=== PATIENT | female | born 1955 | race Caucasian/White ===

== ENCOUNTER 2020-04-21 23:30 | Inpatient (IN) | payer BC, MEDICARE ==
[~2020-04-21] VITALS: Ht 152.4 cm; Wt 55.7 kg
[2020-04-22 01:24] LABS: BILIRUBIN,URINE NEGATIVE (NEG); CLARITY,URINE CLEAR; COLOR,URINE YELLOW; NITRITE,URINE NEGATIVE (NEG); PH,URINE 7.5 (<5.0-8.0); PROTEIN,URINE NEGATIVE (NEG-TRACE); UROBILINOGEN,URINE 0.2 mg/dL (0.2 mg/dL)
[2020-04-22 01:29] LABS: SQUAMOUS EPITHELIAL CELL,UR FEW /LPF
[2020-04-22 01:30] LABS: BACTERIA,URINE FEW /HPF (0-FEW)
[2020-04-22] MEDS ORDERED: IV NORMAL SALINE 1000ML BAG 1,000 ML IV ONE (01:30)
[2020-04-22] MEDS ORDERED: ONDANSETRON PF 4 MG/2 ML VIAL. IVP ONE (01:30)
[2020-04-22] MEDS ORDERED: FAMOTIDINE 20 MG/2 ML VIAL IVP ONE (01:30)
[2020-04-22] MEDS ORDERED: KETOROLAC 15 MG/ML VIAL. IVP ONE (01:30)
[2020-04-22 01:39] LABS: BASO % 0 % (0-3); EOS % 0 % (0-3); HEMOGLOBIN 13.6 g/dL (12.0-15.5); LYMPH # 1.1 x10^3/uL (1.0-4.8); LYMPH % 8 % (24-48); MEAN CORPUSCULAR HEMOGLOBIN 29 pg (25-35); MEAN CORPUSCULAR HGB CONC 34 g/dL (31-37); MEAN CORPUSCULAR VOLUME 86 fL (79-100); MONO # 0.4 x10^3/uL (0.0-1.1); MONO % 3 % (0-9); NEUT # 12.1 x10^3/uL (1.8-7.7); NEUT % 89 % (31-73); PLATELET COUNT 234 x10^3/uL (140-400); RED BLOOD COUNT 4.65 x10^6/uL (3.50-5.40); WHITE BLOOD COUNT 13.6 x10^3/uL (4.0-11.0)
--- NOTE | 2020-04-22 01:44 | PHYS DOC ---
Past Medical History Past Medical History: Diabetes-Type II, High Cholesterol, Hypertension Past Surgical History: No Surgical History Smoking Status: Never Smoker Alcohol Use: None Drug Use: None General Adult EDM: Chief Complaint: ABDOMINAL PAIN HPI: HPI: 65-year-old female presents to the emergency department for nausea, vomiting, and abdominal pain that started at 1700 this evening. She states that it was not associated with any food she is aware of. The nausea and abdominal pain was sudden in onset and caused her to have to pullman clerk her car to vomit on the side of the road. Since the onset of the abdominal pain and nausea she has vomited 5 times. She has attempted drinking and eating, but has vomited after all these events. She has no associated diarrhea. She denies any changes in urination or bowel movements over the past few days. She attempted to take hydrocodone and a gas relief pill for her abdominal pain and abdominal distention, but she vomited immediately after taking these medications. She feels very distended in her abdomen. She currently still feels nauseous, but has not vomited for over 2 hours. Review of Systems: Review of Systems: Constitutional: Denies fever or chills Eyes: Denies redness or eye pain HENT: Denies nasal congestion or sore throat Respiratory: Denies cough or shortness of breath Cardiovascular: Denies chest pain or palpitations GI: Reports abdominal pain, nausea, and vomiting : Denies dysuria or hematuria Musculoskeletal: Denies back pain or joint pain Integument: Denies rash or skin lesions Neurologic: Denies headache, focal weakness or sensory changes Complete systems were reviewed and found to be within normal limits, except as documented in this note. Current Medications: Current Medications Medications (Trade) Dose Ordered Sig/Hernando Start Time Stop Time Status Last Admin Dose Admin Famotidine (Pepcid Vial) 20 mg 1X ONCE 04/22/20 01:30 04/22/20 01:31 DC Ketorolac Tromethamine (Toradol 15mg Vial) 10 mg 1X ONCE 04/22/20 01:30 04/22/20 01:31 DC Ondansetron HCl (Zofran) 4 mg 1X ONCE 04/22/20 01:30 04/22/20 01:31 DC Sodium Chloride 1,000 ml @ 1,000 mls/hr 1X ONCE 04/22/20 01:30 04/22/20 02:29 Allergies: Allergies: Allergies Coded Allergies Type Severity Reaction Last Updated Verified No Known Drug Allergies 04/22/20 No Physical Exam: PE: Constitutional: Well developed, well nourished, no acute distress, non-toxic appearance HENT: Normocephalic, atraumatic Eyes: Conjunctiva normal, no discharge Neck: Normal range of motion, supple Lungs & Thorax: No respiratory distress, bilateral equal rise and fall of chest Abdomen: Soft, slightly distended, tenderness noted in all 4 quadrants, no guarding Skin: Warm, dry, no erythema, no rash Back: No tenderness, no CVA tenderness Extremities: No tenderness, ROM intact, no edema Neurologic: Alert and oriented X 3, normal motor function, normal sensory function, no focal deficits noted Psychologic: Affect normal, judgment normal Current Patient Data: Labs: Laboratory Tests Test 04/22/20 00:16 Urine Collection Type Unknown Urine Color Yellow Urine Clarity Clear Urine pH 7.5 (<5.0-8.0) Urine Specific [place] 1.020 (1.000-1.030) Urine Protein Negative mg/dL (NEG-TRACE) Urine Glucose (UA) Negative mg/dL (NEG) Urine Ketones (Stick) 40 mg/dL (NEG) Urine Blood Negative (NEG) Urine Nitrite Negative (NEG) Urine Bilirubin Negative (NEG) Urine Urobilinogen Dipstick 0.2 mg/dL (0.2 mg/dL) Urine Leukocyte Esterase Moderate (NEG) Urine RBC 1-2 /HPF (0-2) Urine WBC 11-20 /HPF (0-4) Urine Squamous Epithelial Cells Few /LPF Urine Bacteria Few /HPF (0-FEW) Urine Mucus Marked /LPF EKG: EKG: [] Radiology/Procedures: Radiology/Procedures: PROCEDURE: CT ABD PELV W/ IV CONTRST ONLY CT abdomen and pelvis with contrast PQRS statement: CT scans at this facility use dose reduction including either automated exposure control, iterative reconstructions, and /or weight based radiation dosing via mA and kV modification when appropriate to reduce radiation dose to as low as reasonably achievable. Contrast: 75 mL Omnipaque 300 intravenous contrast. HISTORY: Abdominal pain and distention. Abdomen findings: Lung bases unremarkable. Lumbar disc disease. Gallbladder phrygian cap containing a gallstone there may be a narrow neck of this. Liver, pancreas, spleen, adrenal glands and kidneys are unremarkable. Small bowel obstruction transition point at the terminal ileum where it is collapsed for length of 10 cm and demonstrates wall thickening leading up to the ileocecal junction likely related to ileitis. The appendix is negative. No abdominal fluid or adenopathy. 2 cm fatty periumbilical abdominal wall hernia. Pelvis findings: Retroverted uterus. Rectum collapse. Ovaries, bladder and bones are unremarkable. No fluid or adenopathy. IMPRESSION: 1. Small bowel obstruction transition point at the terminal ileum which demonstrates wall thickening and a stricture may indicate terminal ileitis from Crohn's disease. 2. Appendix is negative. 3. Gallstone. FOR INTERNAL CODING PURPOSES Critical result: Findings discussed with LIAN ZAMARRIPA at 04/22/2020 4:19 AM. There was a delay in report of the study due to delay in receiving all of the images of the study. RESULT CODE: (C) Electronically signed by: Sha Ventura MD (04/22/2020 4:20 AM) [facility] [place] & Med Decision Making: Course & Med Decision Making Patient presents with abdominal pain, nausea, and vomiting. The vomiting started at 1700 today and was associated with severe abdominal pain. Upon her examination the emergency department she appeared to be in acute pain and to be very uncomfortable. She stated that she had not been able to eat food or drink water without vomiting. IVF hydration and symptomatic treatment provided. CT of the abdomen came back as positive for small bowel obstruction. Patient requiring admission for further evaluation and treatment. Discussed with Dr. Chan (hospitalist) who is in agreement with admission. Consult placed for general surgery. Discussed findings and plan with patient and family, who acknowledge understanding and agreement. Dragon Disclaimer: Dragon Disclaimer: This electronic medical record was generated, in whole or in part, using a voice recognition dictation system. Departure Departure Impression: Primary Impression: Small bowel obstruction Disposition: ADMITTED INPATIENT Admitting Physician: AGUSTO (Dustin) Condition: STABLE Referrals: TRUDI AVILES APRN (PCP) Justicifation of Admission Dx: Justifications for Admission: Justification of Admission Dx: Yes Comments: LIAN CROCKETT DO Apr 22, 2020 01:44
[2020-04-22 01:47] LABS: CALCIUM 9.3 mg/dL (8.5-10.1); CREATININE 0.8 mg/dL (0.6-1.0); POTASSIUM 4.1 mmol/L (3.5-5.1)
[2020-04-22 01:54] LABS: ALBUMIN 4.1 g/dL (3.4-5.0); ALBUMIN/GLOBULIN RATIO 1.1 (1.0-1.7); MAGNESIUM 2.2 mg/dL (1.8-2.4); TOTAL BILIRUBIN 0.4 mg/dL (0.2-1.0); TOTAL PROTEIN 7.9 g/dL (6.4-8.2)
[2020-04-22 02:06] LABS: % BANDS 2 % (0-9); % LYMPHS 12 % (24-48); % SEGS 86 % (35-66); PLT ESTIMATE ADEQUATE (ADEQUATE)
[2020-04-22] MEDS ORDERED: CONTRAST GIVEN. MC PRN (02:15)
[2020-04-22] MEDS ORDERED: cefTRIAXone IV Push 1 GM VIAL. IVP ONE (02:30)
[2020-04-22] MEDS ORDERED: IOHEXOL 300 MG/ML 100ML VIAL. IV ONE (02:30)
--- NOTE | 2020-04-22 04:22 | RAD ---
CT abdomen and pelvis with contrast PQRS statement: CT scans at this facility use dose reduction including either automated exposure control, iterative reconstructions, and /or weight based radiation dosing via mA and kV modification when appropriate to reduce radiation dose to as low as reasonably achievable. Contrast: 75 mL Omnipaque 300 intravenous contrast. HISTORY: Abdominal pain and distention. Abdomen findings: Lung bases unremarkable. Lumbar disc disease. Gallbladder phrygian cap containing a gallstone there may be a narrow neck of this. Liver, pancreas, spleen, adrenal glands and kidneys are unremarkable. Small bowel obstruction transition point at the terminal ileum where it is collapsed for length of 10 cm and demonstrates wall thickening leading up to the ileocecal junction likely related to ileitis. The appendix is negative. No abdominal fluid or adenopathy. 2 cm fatty periumbilical abdominal wall hernia. Pelvis findings: Retroverted uterus. Rectum collapse. Ovaries, bladder and bones are unremarkable. No fluid or adenopathy. IMPRESSION: 1. Small bowel obstruction transition point at the terminal ileum which demonstrates wall thickening and a stricture may indicate terminal ileitis from Crohn's disease. 2. Appendix is negative. 3. Gallstone. FOR INTERNAL CODING PURPOSES Critical result: Findings discussed with LIAN ZAMARRIPA at 04/22/2020 4:19 AM. There was a delay in report of the study due to delay in receiving all of the images of the study. RESULT CODE: (C) Electronically signed by: Sha Ventura MD (04/22/2020 4:20 AM) [facility]
[2020-04-22] MEDS ORDERED: fentaNYL PF VIAL 100 MCG/2 ML VIAL IV ONE (04:30)
[2020-04-22] MEDS ORDERED: ONDANSETRON PF 4 MG/2 ML VIAL. IV PRN ×2 (04:30→13:00)
[2020-04-22] MEDS: IV NORMAL SALINE 1000ML BAG 1,000 ML IV SCH ×2 (04:51→12:02)
[2020-04-22] MEDS: fentaNYL PF VIAL 100 MCG/2 ML VIAL IV PRN ×6 (07:15→21:29)
[2020-04-22 07:25] VITALS: BP 118/62
--- NOTE | 2020-04-22 09:37 | PDOC2 ---
MARTINA VALENCIA ACCOUNTING PROFESSIONAL 04/22/20 0937: CONSULT Date of Consult Date of Consult DATE: 04/22/20 TIME: 09:28 Reason for Consult Reason for Consult: SBO Referring Physician Referring Physician: ER Identification/Chief Complaint Chief Complaint abdominal pain Source Source: Chart review, Patient History of Present Illness Reason for Visit: Acute onset severe abdominal pain, vomiting, and chills. Started yesterday, no similar symptoms in past. She does report bloating, burping, No stool since Sunday, soft, no blood Colonoscopy 5 years ago, found some bleeding spots per patient, due to repeat this year Past Medical History Past Medical History no medical hx Past Surgical History Past Surgical History: No pertinent history Family History Family History: Other (no IBD) Social History No ALCOHOL: none Drugs: None Lives: with Family Current Problem List Problem List Problems Medical Problems: (1) Small bowel obstruction Status: Acute Current Medications Current Medications Current Medications Ondansetron HCl (Zofran) 4 mg 1X ONCE IVP Last administered on 04/22/20at 01:59; Start 04/22/20 at 01:30; Stop 04/22/20 at 01:31; Status DC Famotidine (Pepcid Vial) 20 mg 1X ONCE IVP Last administered on 04/22/20at 01:59; Start 04/22/20 at 01:30; Stop 04/22/20 at 01:31; Status DC Sodium Chloride 1,000 ml @ 1,000 mls/hr 1X ONCE IV Last administered on 04/22/20at 01:59; Start 04/22/20 at 01:30; Stop 04/22/20 at 02:29; Status DC Ketorolac Tromethamine (Toradol 15mg Vial) 10 mg 1X ONCE IVP Last administered on 04/22/20at 02:00; Start 04/22/20 at 01:30; Stop 04/22/20 at 01:31; Status DC Iohexol (Omnipaque 300 Mg/ml) 75 ml 1X ONCE IV Last administered on 04/22/20at 02:26; Start 04/22/20 at 02:30; Stop 04/22/20 at 02:31; Status DC Info (CONTRAST GIVEN -- Rx MONITORING) 1 each PRN DAILY PRN MC SEE COMMENTS; Start 04/22/20 at 02:15; Stop 04/24/20 at 02:14 Ceftriaxone Sodium (Rocephin) 1 gm 1X ONCE IVP Last administered on 04/22/20at 04:07; Start 04/22/20 at 02:30; Stop 04/22/20 at 02:31; Status DC Fentanyl Citrate (Fentanyl 2ml Vial) 25 mcg 1X ONCE IV Last administered on 04/22/20at 04:52; Start 04/22/20 at 04:30; Stop 04/22/20 at 04:31; Status DC Ondansetron HCl (Zofran) 4 mg PRN Q8HRS PRN IV NAUSEA/VOMITING 1ST CHOICE Last administered on 04/22/20at 07:15; Start 04/22/20 at 04:30; Stop 04/23/20 at 04:29 Fentanyl Citrate (Fentanyl 2ml Vial) 25 mcg PRN Q2HRS PRN IV SEVERE PAIN 7-10 Last administered on 04/22/20at 07:15; Start 04/22/20 at 04:30 Sodium Chloride 1,000 ml @ 100 mls/hr Q10H IV Last administered on 04/22/20at 04:51; Start 04/22/20 at 04:30; Stop 04/23/20 at 04:29 Ceftriaxone Sodium (Rocephin) 1 gm Q24H IVP ; Start 04/22/20 at 21:00 Allergies Allergies: Coded Allergies: Penicillins (Verified Allergy, Unknown, 04/22/20) TOLERATES CTX ROS General: YES: Chills, Fatigue PSYCHOLOGICAL ROS: No: Anxiety, Depression Eyes: No Blurry vision, No Double vision HEENT: No: Heacaches, Sore Throat Hematological and Lymphatic: No: Bleeding Problems, Blood Clots Respiratory: No: Cough, Shortness of breath Cardiovascular: No Chest Pain, No Palpitations Gastrointestinal: Yes Other (see hpi) Genitourinary: YES Dysuria; No Hematuria Neurological: No Confusion, No Impaired Coord/balance Skin: No Nail Changes, No Skin Lesion Changes Physical Exam General: Alert, Oriented X3, Cooperative HEENT: Atraumatic, PERRLA Lungs: Clear to auscultation, Normal air movement Heart: Regular rate, Normal S1, Normal S2 Abdomen: Soft, Other (TTP generalized, mild distended) Extremities: No clubbing, No cyanosis Skin: No rashes, No breakdown Neuro: Normal gait, Normal speech Psych/Mental Status: Mental status NL, Mood NL MUSCULOSKELETAL: No deformity, No swelling Vitals VITALS Vital Signs Date Time Temp Pulse Resp B/P (MAP) Pulse Ox O2 Delivery O2 Flow Rate FiO2 04/22/20 07:25 98.4 80 16 118/62 (80) 97 Room Air 98.4 Labs Labs Laboratory Tests Test 04/22/20 00:16 04/22/20 01:30 Urine Collection Type Unknown Urine Color Yellow Urine Clarity Clear Urine pH 7.5 (<5.0-8.0) Urine Specific [place] 1.020 (1.000-1.030) Urine Protein Negative mg/dL (NEG-TRACE) Urine Glucose (UA) Negative mg/dL (NEG) Urine Ketones (Stick) 40 mg/dL (NEG) Urine Blood Negative (NEG) Urine Nitrite Negative (NEG) Urine Bilirubin Negative (NEG) Urine Urobilinogen Dipstick 0.2 mg/dL (0.2 mg/dL) Urine Leukocyte Esterase Moderate (NEG) Urine RBC 1-2 /HPF (0-2) Urine WBC 11-20 /HPF (0-4) Urine Squamous Epithelial Cells Few /LPF Urine Bacteria Few /HPF (0-FEW) Urine Mucus Marked /LPF White Blood Count 13.6 x10^3/uL (4.0-11.0) Red Blood Count 4.65 x10^6/uL (3.50-5.40) Hemoglobin 13.6 g/dL (12.0-15.5) Hematocrit 40.0 % (36.0-47.0) Mean Corpuscular Volume 86 fL (79-100) Mean Corpuscular Hemoglobin 29 pg (25-35) Mean Corpuscular Hemoglobin Concent 34 g/dL (31-37) Red Cell Distribution Width 13.0 % (11.5-14.5) Platelet Count 234 x10^3/uL (140-400) Neutrophils (%) (Auto) 89 % (31-73) Lymphocytes (%) (Auto) 8 % (24-48) Monocytes (%) (Auto) 3 % (0-9) Eosinophils (%) (Auto) 0 % (0-3) Basophils (%) (Auto) 0 % (0-3) Neutrophils # (Auto) 12.1 x10^3/uL (1.8-7.7) Lymphocytes # (Auto) 1.1 x10^3/uL (1.0-4.8) Monocytes # (Auto) 0.4 x10^3/uL (0.0-1.1) Eosinophils # (Auto) 0.0 x10^3/uL (0.0-0.7) Basophils # (Auto) 0.0 x10^3/uL (0.0-0.2) Segmented Neutrophils % 86 % (35-66) Band Neutrophils % 2 % (0-9) Lymphocytes % 12 % (24-48) Platelet Estimate Adequate (ADEQUATE) Sodium Level 137 mmol/L (136-145) Potassium Level 4.1 mmol/L (3.5-5.1) Chloride Level 100 mmol/L (98-107) Carbon Dioxide Level 28 mmol/L (21-32) Anion Gap 9 (6-14) Blood Urea Nitrogen 15 mg/dL (7-20) Creatinine 0.8 mg/dL (0.6-1.0) Estimated GFR (Cockcroft-Gault) 72.0 BUN/Creatinine Ratio 19 (6-20) Glucose Level 130 mg/dL (70-99) Calcium Level 9.3 mg/dL (8.5-10.1) Magnesium Level 2.2 mg/dL (1.8-2.4) Total Bilirubin 0.4 mg/dL (0.2-1.0) Aspartate Amino Transf (AST/SGOT) 23 U/L (15-37) Alanine Aminotransferase (ALT/SGPT) 35 U/L (14-59) Alkaline Phosphatase 62 U/L (46-116) Total Protein 7.9 g/dL (6.4-8.2) Albumin 4.1 g/dL (3.4-5.0) Albumin/Globulin Ratio 1.1 (1.0-1.7) Lipase 69 U/L (73-393) Laboratory Tests Test 04/22/20 00:16 04/22/20 01:30 Urine Collection Type Unknown Urine Color Yellow Urine Clarity Clear Urine pH 7.5 (<5.0-8.0) Urine Specific Erick 1.020 (1.000-1.030) Urine Protein Negative mg/dL (NEG-TRACE) Urine Glucose (UA) Negative mg/dL (NEG) Urine Ketones (Stick) 40 mg/dL (NEG) Urine Blood Negative (NEG) Urine Nitrite Negative (NEG) Urine Bilirubin Negative (NEG) Urine Urobilinogen Dipstick 0.2 mg/dL (0.2 mg/dL) Urine Leukocyte Esterase Moderate (NEG) Urine RBC 1-2 /HPF (0-2) Urine WBC 11-20 /HPF (0-4) Urine Squamous Epithelial Cells Few /LPF Urine Bacteria Few /HPF (0-FEW) Urine Mucus Marked /LPF White Blood Count 13.6 x10^3/uL (4.0-11.0) Red Blood Count 4.65 x10^6/uL (3.50-5.40) Hemoglobin 13.6 g/dL (12.0-15.5) Hematocrit 40.0 % (36.0-47.0) Mean Corpuscular Volume 86 fL (79-100) Mean Corpuscular Hemoglobin 29 pg (25-35) Mean Corpuscular Hemoglobin Concent 34 g/dL (31-37) Red Cell Distribution Width 13.0 % (11.5-14.5) Platelet Count 234 x10^3/uL (140-400) Neutrophils (%) (Auto) 89 % (31-73) Lymphocytes (%) (Auto) 8 % (24-48) Monocytes (%) (Auto) 3 % (0-9) Eosinophils (%) (Auto) 0 % (0-3) Basophils (%) (Auto) 0 % (0-3) Neutrophils # (Auto) 12.1 x10^3/uL (1.8-7.7) Lymphocytes # (Auto) 1.1 x10^3/uL (1.0-4.8) Monocytes # (Auto) 0.4 x10^3/uL (0.0-1.1) Eosinophils # (Auto) 0.0 x10^3/uL (0.0-0.7) Basophils # (Auto) 0.0 x10^3/uL (0.0-0.2) Segmented Neutrophils % 86 % (35-66) Band Neutrophils % 2 % (0-9) Lymphocytes % 12 % (24-48) Platelet Estimate Adequate (ADEQUATE) Sodium Level 137 mmol/L (136-145) Potassium Level 4.1 mmol/L (3.5-5.1) Chloride Level 100 mmol/L (98-107) Carbon Dioxide Level 28 mmol/L (21-32) Anion Gap 9 (6-14) Blood Urea Nitrogen 15 mg/dL (7-20) Creatinine 0.8 mg/dL (0.6-1.0) Estimated GFR (Cockcroft-Gault) 72.0 BUN/Creatinine Ratio 19 (6-20) Glucose Level 130 mg/dL (70-99) Calcium Level 9.3 mg/dL (8.5-10.1) Magnesium Level 2.2 mg/dL (1.8-2.4) Total Bilirubin 0.4 mg/dL (0.2-1.0) Aspartate Amino Transf (AST/SGOT) 23 U/L (15-37) Alanine Aminotransferase (ALT/SGPT) 35 U/L (14-59) Alkaline Phosphatase 62 U/L (46-116) Total Protein 7.9 g/dL (6.4-8.2) Albumin 4.1 g/dL (3.4-5.0) Albumin/Globulin Ratio 1.1 (1.0-1.7) Lipase 69 U/L (73-393) Assessment/Plan Assessment/Plan SBO CT concerning for terminal ileitis ? crohns bowel rest abx will ask GI to DANIEL Boles MD 04/22/20 1142: CONSULT Assessment/Plan Assessment/Plan Agree with above MARTINA VALENCIA APRN Apr 22, 2020 09:37 DANIEL MENDOZA MD Apr 22, 2020 11:42
--- NOTE | 2020-04-22 09:49 | PDOC1 ---
History and Physical Date of Admission Date of Admission DATE: 04/22/20 TIME: 09:47 History of Present Illness History of Present Illness 65-year-old female presents to the emergency department for nausea, vomiting, and abdominal pain that started at 1700 this evening. She states that it was not associated with any food she is aware of. 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 Since the onset of the abdominal pain and nausea she has vomited 5 times. She has attempted drinking and eating, but has vomited after all these events. She has no associated diarrhea. She denies any changes in urination or bowel movements over the past few days. She attempted to take hydrocodone and a gas relief pill for her abdominal pain and abdominal distention, but she vomited immediately after taking these medications. She feels very distended in her abdomen. She currently still feels nauseous, but has not vomited for over 2 hours. Past Medical History Cardiovascular: No pertinent hx Pulmonary: No pertinent hx GI: No pertinent hx Heme/Onc: No pertinent hx Psych: No pertinent hx Past Surgical History Past Surgical History: No pertinent history Family History Family History: No Significant, Other (no IBD) Social History Smoke: No ALCOHOL: none Drugs: None Current Problem List Problem List Problems Medical Problems: (1) Small bowel obstruction Status: Acute Current Medications Current Medications Current Medications Ondansetron HCl (Zofran) 4 mg 1X ONCE IVP Last administered on 04/22/20at 01:59; Start 04/22/20 at 01:30; Stop 04/22/20 at 01:31; Status DC Famotidine (Pepcid Vial) 20 mg 1X ONCE IVP Last administered on 04/22/20at 01:59; Start 04/22/20 at 01:30; Stop 04/22/20 at 01:31; Status DC Sodium Chloride 1,000 ml @ 1,000 mls/hr 1X ONCE IV Last administered on 04/22/20at 01:59; Start 04/22/20 at 01:30; Stop 04/22/20 at 02:29; Status DC Ketorolac Tromethamine (Toradol 15mg Vial) 10 mg 1X ONCE IVP Last administered on 04/22/20at 02:00; Start 04/22/20 at 01:30; Stop 04/22/20 at 01:31; Status DC Iohexol (Omnipaque 300 Mg/ml) 75 ml 1X ONCE IV Last administered on 04/22/20at 02:26; Start 04/22/20 at 02:30; Stop 04/22/20 at 02:31; Status DC Info (CONTRAST GIVEN -- Rx MONITORING) 1 each PRN DAILY PRN MC SEE COMMENTS; Start 04/22/20 at 02:15; Stop 04/24/20 at 02:14 Ceftriaxone Sodium (Rocephin) 1 gm 1X ONCE IVP Last administered on 04/22/20at 04:07; Start 04/22/20 at 02:30; Stop 04/22/20 at 02:31; Status DC Fentanyl Citrate (Fentanyl 2ml Vial) 25 mcg 1X ONCE IV Last administered on 04/22/20at 04:52; Start 04/22/20 at 04:30; Stop 04/22/20 at 04:31; Status DC Ondansetron HCl (Zofran) 4 mg PRN Q8HRS PRN IV NAUSEA/VOMITING 1ST CHOICE Last administered on 04/22/20at 07:15; Start 04/22/20 at 04:30; Stop 04/23/20 at 04:29 Fentanyl Citrate (Fentanyl 2ml Vial) 25 mcg PRN Q2HRS PRN IV SEVERE PAIN 7-10 Last administered on 04/22/20at 07:15; Start 04/22/20 at 04:30 Sodium Chloride 1,000 ml @ 100 mls/hr Q10H IV Last administered on 04/22/20at 04:51; Start 04/22/20 at 04:30; Stop 04/23/20 at 04:29 Ceftriaxone Sodium (Rocephin) 1 gm Q24H IVP ; Start 04/22/20 at 21:00 Allergies Allergies: Coded Allergies: Penicillins (Verified Allergy, Unknown, 04/22/20) TOLERATES CTX ROS General: No: Chills, Night Sweats, Fatigue, Malaise, Appetite, Other PSYCHOLOGICAL ROS: No: Anxiety, Behavioral Disorder, Concentration difficultie, Decreased libido, Depression, Disorientation, Hallucinations, Hostility, Irritablity, Memory difficulties, Mood Swings, Obsessive thoughts, Physical abuse, Sexual abuse, Sleep disturbances, Suicidal ideation, Other Eyes: No Blurry vision, No Decreased vision, No Double vision, No Dry eyes, No Excessive tearing, No Eye Pain, No Itchy Eyes, No Loss of vision, No Photophobia, No Scotomata, No Uses contacts, No Uses glasses, No Other HEENT: No: Heacaches, Visual Changes, Hearing change, Nasal congestion, Nasal discharge, Oral lesions, Sinus pain, Sore Throat, Epistaxis, Sneezing, Snoring, Tinnitus, Vertigo, Vocal changes, Other Cardiovascular: No Chest Pain, No Palpitations, No Orthopnea, No Paroxysmal Noc. Dyspnea, No Edema, No Lt Headedness, No Other Gastrointestinal: Yes Nausea, Yes Vomiting, Yes Abdominal Pain, Yes Other (belching) Genitourinary: No Dysuria, No Frequency, No Incontinence, No Hematuria, No Retention, No Discharge, No Urgency, No Pain, No Flank Pain, No Other, No , No , No , No , No , No , No Musculoskeletal: No Gait Disturbance, No Joint Pain, No Joint Stiffness, No Joint Swelling, No Muscle Pain, No Muscular Weakness, No Pain In:, No Swelling In:, No Other Neurological: No Behavorial Changes, No Bowel/Bladder ControlChng, No Confusion, No Dizziness, No Gait Disturbance, No Headaches, No Impaired Coord/b alance, No Memory Loss, No Numbness/Tingling, No Seizures, No Speech Problems, No Tremors, No Visual Changes, No Weakness, No Other Skin: No Dry Skin, No Eczema, No Hair Changes, No Lumps, No Mole Changes, No Mottling, No Nail Changes, No Pruritus, No Rash, No Skin Lesion Changes, No Other, No Acne Physical Exam General: Alert, Oriented X3, Cooperative, mild distress HEENT: Atraumatic, PERRLA Lungs: Clear to auscultation Heart: S1S2, RRR Abdomen: Soft (tender, hypoactive sounds) Extremities: No edema, Normal pulses Skin: No significant lesion Neuro: Normal speech, Sensation intact Psych/Mental Status: Mental status NL, Mood NL Vitals Vitals Vital Signs Date Time Temp Pulse Resp B/P (MAP) Pulse Ox O2 Delivery O2 Flow Rate FiO2 04/22/20 07:25 98.4 80 16 118/62 (80) 97 Room Air 98.4 Labs Labs Laboratory Tests Test 04/22/20 00:16 04/22/20 01:30 Urine Collection Type Unknown Urine Color Yellow Urine Clarity Clear Urine pH 7.5 (<5.0-8.0) Urine Specific [place] 1.020 (1.000-1.030) Urine Protein Negative mg/dL (NEG-TRACE) Urine Glucose (UA) Negative mg/dL (NEG) Urine Ketones (Stick) 40 mg/dL (NEG) Urine Blood Negative (NEG) Urine Nitrite Negative (NEG) Urine Bilirubin Negative (NEG) Urine Urobilinogen Dipstick 0.2 mg/dL (0.2 mg/dL) Urine Leukocyte Esterase Moderate (NEG) Urine RBC 1-2 /HPF (0-2) Urine WBC 11-20 /HPF (0-4) Urine Squamous Epithelial Cells Few /LPF Urine Bacteria Few /HPF (0-FEW) Urine Mucus Marked /LPF White Blood Count 13.6 x10^3/uL (4.0-11.0) Red Blood Count 4.65 x10^6/uL (3.50-5.40) Hemoglobin 13.6 g/dL (12.0-15.5) Hematocrit 40.0 % (36.0-47.0) Mean Corpuscular Volume 86 fL (79-100) Mean Corpuscular Hemoglobin 29 pg (25-35) Mean Corpuscular Hemoglobin Concent 34 g/dL (31-37) Red Cell Distribution Width 13.0 % (11.5-14.5) Platelet Count 234 x10^3/uL (140-400) Neutrophils (%) (Auto) 89 % (31-73) Lymphocytes (%) (Auto) 8 % (24-48) Monocytes (%) (Auto) 3 % (0-9) Eosinophils (%) (Auto) 0 % (0-3) Basophils (%) (Auto) 0 % (0-3) Neutrophils # (Auto) 12.1 x10^3/uL (1.8-7.7) Lymphocytes # (Auto) 1.1 x10^3/uL (1.0-4.8) Monocytes # (Auto) 0.4 x10^3/uL (0.0-1.1) Eosinophils # (Auto) 0.0 x10^3/uL (0.0-0.7) Basophils # (Auto) 0.0 x10^3/uL (0.0-0.2) Segmented Neutrophils % 86 % (35-66) Band Neutrophils % 2 % (0-9) Lymphocytes % 12 % (24-48) Platelet Estimate Adequate (ADEQUATE) Sodium Level 137 mmol/L (136-145) Potassium Level 4.1 mmol/L (3.5-5.1) Chloride Level 100 mmol/L (98-107) Carbon Dioxide Level 28 mmol/L (21-32) Anion Gap 9 (6-14) Blood Urea Nitrogen 15 mg/dL (7-20) Creatinine 0.8 mg/dL (0.6-1.0) Estimated GFR (Cockcroft-Gault) 72.0 BUN/Creatinine Ratio 19 (6-20) Glucose Level 130 mg/dL (70-99) Calcium Level 9.3 mg/dL (8.5-10.1) Magnesium Level 2.2 mg/dL (1.8-2.4) Total Bilirubin 0.4 mg/dL (0.2-1.0) Aspartate Amino Transf (AST/SGOT) 23 U/L (15-37) Alanine Aminotransferase (ALT/SGPT) 35 U/L (14-59) Alkaline Phosphatase 62 U/L (46-116) Total Protein 7.9 g/dL (6.4-8.2) Albumin 4.1 g/dL (3.4-5.0) Albumin/Globulin Ratio 1.1 (1.0-1.7) Lipase 69 U/L (73-393) Laboratory Tests Test 04/22/20 00:16 04/22/20 01:30 Urine Collection Type Unknown Urine Color Yellow Urine Clarity Clear Urine pH 7.5 (<5.0-8.0) Urine Specific [place] 1.020 (1.000-1.030) Urine Protein Negative mg/dL (NEG-TRACE) Urine Glucose (UA) Negative mg/dL (NEG) Urine Ketones (Stick) 40 mg/dL (NEG) Urine Blood Negative (NEG) Urine Nitrite Negative (NEG) Urine Bilirubin Negative (NEG) Urine Urobilinogen Dipstick 0.2 mg/dL (0.2 mg/dL) Urine Leukocyte Esterase Moderate (NEG) Urine RBC 1-2 /HPF (0-2) Urine WBC 11-20 /HPF (0-4) Urine Squamous Epithelial Cells Few /LPF Urine Bacteria Few /HPF (0-FEW) Urine Mucus Marked /LPF White Blood Count 13.6 x10^3/uL (4.0-11.0) Red Blood Count 4.65 x10^6/uL (3.50-5.40) Hemoglobin 13.6 g/dL (12.0-15.5) Hematocrit 40.0 % (36.0-47.0) Mean Corpuscular Volume 86 fL (79-100) Mean Corpuscular Hemoglobin 29 pg (25-35) Mean Corpuscular Hemoglobin Concent 34 g/dL (31-37) Red Cell Distribution Width 13.0 % (11.5-14.5) Platelet Count 234 x10^3/uL (140-400) Neutrophils (%) (Auto) 89 % (31-73) Lymphocytes (%) (Auto) 8 % (24-48) Monocytes (%) (Auto) 3 % (0-9) Eosinophils (%) (Auto) 0 % (0-3) Basophils (%) (Auto) 0 % (0-3) Neutrophils # (Auto) 12.1 x10^3/uL (1.8-7.7) Lymphocytes # (Auto) 1.1 x10^3/uL (1.0-4.8) Monocytes # (Auto) 0.4 x10^3/uL (0.0-1.1) Eosinophils # (Auto) 0.0 x10^3/uL (0.0-0.7) Basophils # (Auto) 0.0 x10^3/uL (0.0-0.2) Segmented Neutrophils % 86 % (35-66) Band Neutrophils % 2 % (0-9) Lymphocytes % 12 % (24-48) Platelet Estimate Adequate (ADEQUATE) Sodium Level 137 mmol/L (136-145) Potassium Level 4.1 mmol/L (3.5-5.1) Chloride Level 100 mmol/L (98-107) Carbon Dioxide Level 28 mmol/L (21-32) Anion Gap 9 (6-14) Blood Urea Nitrogen 15 mg/dL (7-20) Creatinine 0.8 mg/dL (0.6-1.0) Estimated GFR (Cockcroft-Gault) 72.0 BUN/Creatinine Ratio 19 (6-20) Glucose Level 130 mg/dL (70-99) Calcium Level 9.3 mg/dL (8.5-10.1) Magnesium Level 2.2 mg/dL (1.8-2.4) Total Bilirubin 0.4 mg/dL (0.2-1.0) Aspartate Amino Transf (AST/SGOT) 23 U/L (15-37) Alanine Aminotransferase (ALT/SGPT) 35 U/L (14-59) Alkaline Phosphatase 62 U/L (46-116) Total Protein 7.9 g/dL (6.4-8.2) Albumin 4.1 g/dL (3.4-5.0) Albumin/Globulin Ratio 1.1 (1.0-1.7) Lipase 69 U/L (73-393) VTE Prophylaxis Ordered VTE Prophylaxis Devices: No VTE Pharmacological Prophylaxi: No Assessment/Plan Assessment/Plan acute abd pain small bowel obstruction admit gen surg consult follwoing UTI, rocephin Justicifation of Admission Dx: Justifications for Admission: Justification of Admission Dx: Yes SIMBA SAAVEDRA MD Apr 22, 2020 09:49
[2020-04-22] MEDS ORDERED: SALIVA STIMULANT AGENT 44ML SPRAY BOTTLE. PO PRN (10:00)
[2020-04-22] MEDS: POTASSIUM CL 20MEQ D5-0.45NACL 1,000 ML IV SCH ×2 (10:05→20:00)
--- NOTE | 2020-04-22 10:11 | NUR ---
SW following. Discussed with RN, pt from home with , room air, ad saravanan, NPO. RN advised no SW needs at this time. SW will continue to follow, should any discharge needs arise.
[2020-04-22 11:00] VITALS: BP 116/63
--- NOTE | 2020-04-22 13:05 | PDOC2 ---
GI CONSULT Date of Service: DATE: 04/22/20 TIME: 13:05 Reason For Consult: SBO, terminal ileitis, Crohn's possible on CT HPI: HPI: Very pleasant 65 y/o female who reports acute onset of mid abdominal pain w/ n/v yesterday evening. No precipitating events. In usual state of health until then. CT noted SBO w/ transition point at TI w/ wall thickening and stricture, possibility of terminal ileitis/Crohn's mentioned on report. Recurrent vomiting x 2-3 times today. Denies IBD history. Rare heartburn related to overeating, improved w/ Tums PRN. Fairly long h/o constipation - improved if she sets aside time in the morning in the restroom and drinks hot tea and coffee. Otherwise has no chronic GI symptoms except occasional bloating. Denies dysphagia, hematemesis, diarrhea, change in appetite, and weight loss. Does not recall previous EGD. Screening colonoscopy at age 50 was normal and screening colonoscopy in 03/2015 showed a few 3mm ulcers in the sigmoid colon (path w/ possible NSAID vs bowel prep vs ischemia) and internal hemorrhoids. She was taking Naproxen QD at that time for shoulder pain Denies GB, liver, pancreas, or PUD history. CT did note gallstone. No arthritis history, denies skin lesions, denies fever. PMH: PMH: per HPI FH: Family History: No pertinent hx (denies IBD), Cancer (ovarian - aunt), CVA, Hypertension, Other (father - colon polyps) Social History: Smoke: No ALCOHOL: occassional Drugs: None ROS: GEN: Denies fevers, chills, sweats HEENT: Denies blurred vision, sore throat CV: Denies chest pain RESP: Denies shortness of air, cough GI: Per HPI : Denies hematuria, dysuria ENDO: Denies weight changes NEURO: Denies confusion, dizziness MSK: Denies weakness, joint pain/swelling SKIN: Denies jaundice, pruritus Vitals: Vitals: Vital Signs Date Time Temp Pulse Resp B/P (MAP) Pulse Ox O2 Delivery O2 Flow Rate FiO2 04/22/20 12:02 98 04/22/20 11:00 97.8 78 16 116/63 (80) Room Air 97.8 Labs: Labs: Laboratory Tests Test 04/22/20 00:16 04/22/20 01:30 Urine Collection Type Unknown Urine Color Yellow Urine Clarity Clear Urine pH 7.5 (<5.0-8.0) Urine Specific [place] 1.020 (1.000-1.030) Urine Protein Negative mg/dL (NEG-TRACE) Urine Glucose (UA) Negative mg/dL (NEG) Urine Ketones (Stick) 40 mg/dL (NEG) Urine Blood Negative (NEG) Urine Nitrite Negative (NEG) Urine Bilirubin Negative (NEG) Urine Urobilinogen Dipstick 0.2 mg/dL (0.2 mg/dL) Urine Leukocyte Esterase Moderate (NEG) Urine RBC 1-2 /HPF (0-2) Urine WBC 11-20 /HPF (0-4) Urine Squamous Epithelial Cells Few /LPF Urine Bacteria Few /HPF (0-FEW) Urine Mucus Marked /LPF White Blood Count 13.6 x10^3/uL (4.0-11.0) Red Blood Count 4.65 x10^6/uL (3.50-5.40) Hemoglobin 13.6 g/dL (12.0-15.5) Hematocrit 40.0 % (36.0-47.0) Mean Corpuscular Volume 86 fL (79-100) Mean Corpuscular Hemoglobin 29 pg (25-35) Mean Corpuscular Hemoglobin Concent 34 g/dL (31-37) Red Cell Distribution Width 13.0 % (11.5-14.5) Platelet Count 234 x10^3/uL (140-400) Neutrophils (%) (Auto) 89 % (31-73) Lymphocytes (%) (Auto) 8 % (24-48) Monocytes (%) (Auto) 3 % (0-9) Eosinophils (%) (Auto) 0 % (0-3) Basophils (%) (Auto) 0 % (0-3) Neutrophils # (Auto) 12.1 x10^3/uL (1.8-7.7) Lymphocytes # (Auto) 1.1 x10^3/uL (1.0-4.8) Monocytes # (Auto) 0.4 x10^3/uL (0.0-1.1) Eosinophils # (Auto) 0.0 x10^3/uL (0.0-0.7) Basophils # (Auto) 0.0 x10^3/uL (0.0-0.2) Segmented Neutrophils % 86 % (35-66) Band Neutrophils % 2 % (0-9) Lymphocytes % 12 % (24-48) Platelet Estimate Adequate (ADEQUATE) Sodium Level 137 mmol/L (136-145) Potassium Level 4.1 mmol/L (3.5-5.1) Chloride Level 100 mmol/L (98-107) Carbon Dioxide Level 28 mmol/L (21-32) Anion Gap 9 (6-14) Blood Urea Nitrogen 15 mg/dL (7-20) Creatinine 0.8 mg/dL (0.6-1.0) Estimated GFR (Cockcroft-Gault) 72.0 BUN/Creatinine Ratio 19 (6-20) Glucose Level 130 mg/dL (70-99) Calcium Level 9.3 mg/dL (8.5-10.1) Magnesium Level 2.2 mg/dL (1.8-2.4) Total Bilirubin 0.4 mg/dL (0.2-1.0) Aspartate Amino Transf (AST/SGOT) 23 U/L (15-37) Alanine Aminotransferase (ALT/SGPT) 35 U/L (14-59) Alkaline Phosphatase 62 U/L (46-116) Total Protein 7.9 g/dL (6.4-8.2) Albumin 4.1 g/dL (3.4-5.0) Albumin/Globulin Ratio 1.1 (1.0-1.7) Lipase 69 U/L (73-393) Allergies: Coded Allergies: Penicillins (Verified Allergy, Unknown, 04/22/20) TOLERATES CTX Medications: Current Medications Medications (Trade) Dose Ordered Sig/[place] Route PRN Reason Start Time Stop Time Status Last Admin Dose Admin Ondansetron HCl (Zofran) 4 mg 1X ONCE IVP 04/22/20 01:30 04/22/20 01:31 DC 04/22/20 01:59 Famotidine (Pepcid Vial) 20 mg 1X ONCE IVP 04/22/20 01:30 04/22/20 01:31 DC 04/22/20 01:59 Sodium Chloride 1,000 ml @ 1,000 mls/hr 1X ONCE IV 04/22/20 01:30 04/22/20 02:29 DC 04/22/20 01:59 Ketorolac Tromethamine (Toradol 15mg Vial) 10 mg 1X ONCE IVP 04/22/20 01:30 04/22/20 01:31 DC 04/22/20 02:00 Iohexol (Omnipaque 300 Mg/ml) 75 ml 1X ONCE IV 04/22/20 02:30 04/22/20 02:31 DC 04/22/20 02:26 Ceftriaxone Sodium (Rocephin) 1 gm 1X ONCE IVP 04/22/20 02:30 04/22/20 02:31 DC 04/22/20 04:07 Fentanyl Citrate (Fentanyl 2ml Vial) 25 mcg 1X ONCE IV 04/22/20 04:30 04/22/20 04:31 DC 04/22/20 04:52 Ondansetron HCl (Zofran) 4 mg PRN Q8HRS PRN IV NAUSEA/VOMITING 1ST CHOICE 04/22/20 04:30 04/22/20 13:03 DC 04/22/20 07:15 Fentanyl Citrate (Fentanyl 2ml Vial) 25 mcg PRN Q2HRS PRN IV SEVERE PAIN 7-10 04/22/20 04:30 04/22/20 10:05 Sodium Chloride 1,000 ml @ 100 mls/hr Q10H IV 04/22/20 04:30 04/23/20 04:29 04/22/20 04:51 Potassium Chloride/Dextrose/ Sod Cl 1,000 ml @ 100 mls/hr Q10H IV 04/22/20 10:00 04/22/20 10:05 Imaging: Imaging: CT A/P IMPRESSION: 1. Small bowel obstruction transition point at the terminal ileum which demonstrates wall thickening and a stricture may indicate terminal ileitis from Crohn's disease. 2. Appendix is negative. 3. Gallstone. PE: GEN: NAD HEENT: Atraumatic, PERRLA LUNGS: CTAB HEART: RRR, no murmurs ABD: NABS, S/ND/NT, no masses EXTREMITY: No edema SKIN: No rashes, no jaundice NEURO/PSYCH: A & O 3 A/P: A/P: Abd pain, vomiting - acute onset 04/21/20 Leukocytosis, ?UTI Abnormal CT - SBO w/ transition point at TI w/ wall thickening and stricture Rare heartburn CRC screen, FH colon polyps - UTD H/o constipation - controlled Cholelithiasis -- I saw her this morning and returned this afternoon w/ Dr. Sung. No chronic GI issues, no h/o IBD - two past colonoscopies as above, most recent w/ sigmoid ulcers likely related to Naproxen use. With ongoing vomiting, would place NGT for decompression. Interval x-ray in a.m. Check CRP, ESR, lactic acid. IBD panel unavailable here. SUSI DELAGDO Apr 22, 2020 13:05
[2020-04-22] MEDS ORDERED: CALC-495 PO (13:17)
[2020-04-22] MEDS ORDERED: CETI10TA74 PO (13:18)
[2020-04-22] MEDS ORDERED: LACT1CAP53 PO (13:18)
[2020-04-22 15:00] VITALS: BP 124/68
--- NOTE | 2020-04-22 17:12 | NUR ---
This RN attempted to insert NG tube. Patient did not tolerate and refused to attempt again. Dr. Sung notified.
[2020-04-22 19:00] VITALS: BP 94/60
[2020-04-22] MEDS ORDERED: FAMOTIDINE 20 MG/2 ML VIAL IVP SCH (21:00)
[2020-04-22] MEDS ORDERED: cefTRIAXone IV Push 1 GM VIAL. IVP SCH (21:00)
[2020-04-22 23:12] VITALS: BP 91/49
[2020-04-23] MEDS: IV NORMAL SALINE 1000ML BAG 1,000 ML IV SCH (00:30)
[2020-04-23 03:00] VITALS: BP 106/64
[2020-04-23 05:19] LABS: HEMATOCRIT 38.4 % (36.0-47.0); HEMOGLOBIN 13.1 g/dL (12.0-15.5); RED BLOOD COUNT 4.38 x10^6/uL (3.50-5.40); RED CELL DISTRIBUTION WIDTH 13.1 % (11.5-14.5); WHITE BLOOD COUNT 7.8 x10^3/uL (4.0-11.0)
[2020-04-23 05:39] LABS: CREATININE 0.8 mg/dL (0.6-1.0); POTASSIUM 4.3 mmol/L (3.5-5.1)
[2020-04-23] MEDS: POTASSIUM CL 20MEQ D5-0.45NACL 1,000 ML IV SCH (06:35)
[2020-04-23 07:15] VITALS: BP 99/63
--- NOTE | 2020-04-23 08:50 | RAD ---
PROCEDURE: ACUTE ABDOMEN SERIES CLINICAL INDICATION / HISTORY: Reason: SBO / Spl. Instructions: / History: . TECHNIQUE: Upright PA chest, supine and upright films of the abdomen were obtained. COMPARISON: Abdomen pelvis CT of 04/22/2020 FINDINGS: AP view the chest reveals the lungs to be clear. Cardiac and mediastinal silhouette are unremarkable. No free air is identified below the diaphragms. Supine and upright views of the abdomen reveal no dilated loops of bowel or air-fluid levels. No organomegaly is present. No destructive osseous lesions. IMPRESSION: No radiographic evidence for bowel obstruction. Electronically signed by: Navid Hall MD (04/23/2020 8:48 AM) [id number]
--- NOTE | 2020-04-23 09:44 | PDOC ---
Date of Service: DATE: 04/23/20 TIME: 09:39 Subjective: Subjective: Feels better today. Did not tolerate NGT. No recurrent n/v. Abd pain resolved, no longer feels bloated. Passed gas earlier. No stool. Would like to try drinking some liquid. Objective: Vital Signs: Vital Signs Date Time Temp Pulse Resp B/P (MAP) Pulse Ox O2 Delivery O2 Flow Rate FiO2 04/23/20 07:15 97.8 81 18 99/63 (75) 98 Room Air 97.8 Labs: Laboratory Tests Test 04/22/20 15:10 04/23/20 04:45 Lactic Acid Level 1.6 mmol/L White Blood Count 7.8 x10^3/uL Red Blood Count 4.38 x10^6/uL Hemoglobin 13.1 g/dL Hematocrit 38.4 % Mean Corpuscular Volume 88 fL Mean Corpuscular Hemoglobin 30 pg Mean Corpuscular Hemoglobin Concent 34 g/dL Red Cell Distribution Width 13.1 % Platelet Count 201 x10^3/uL Sodium Level 143 mmol/L Potassium Level 4.3 mmol/L Chloride Level 109 mmol/L Carbon Dioxide Level 28 mmol/L Anion Gap 6 Blood Urea Nitrogen 8 mg/dL Creatinine 0.8 mg/dL Estimated GFR (Cockcroft-Gault) 72.0 Glucose Level 105 mg/dL Calcium Level 8.0 mg/dL Lactic and CRP normal yesterday. Sed rate cancelled per lab - "not available." Imaging: [facility]AS 04/23 IMPRESSION: No radiographic evidence for bowel obstruction. PE: GEN: NAD LUNGS: CTAB HEART: RRR ABD: quiet BS, soft, non-tender, non-distended NEURO/PSYCH: A & O 3 A/P: Abd pain, vomiting - resolved Abnormal CT - SBO w/ transition point at TI w/ wall thickening and stricture - interval x-ray normal as above -- Better today. Try clears. Outpt colonoscopy. Justicifation of Admission Dx: Justifications for Admission: Justification of Admission Dx: Yes SUSI DELGADO Apr 23, 2020 09:44
--- NOTE | 2020-04-23 09:52 | NUR ---
SW following. Discussed with RN, pt still NPO, room air. RN advised no SW needs, anticipates discharge in the next day or two. SW will continue to follow.
--- NOTE | 2020-04-23 10:07 | PDOC ---
MARTINA VALENCIA DAMPER MAKER 04/23/20 1007: SURGICAL PROGRESS NOTE DATE: 04/23/20 TIME: 10:06 Subjective doing well no further nausea or emesis + flatus no pain Vital Signs Vital Signs Date Time Temp Pulse Resp B/P (MAP) Pulse Ox O2 Delivery O2 Flow Rate FiO2 04/23/20 07:15 97.8 81 18 99/63 (75) 98 Room Air 97.8 I&O Intake and Output 04/23/20 07:00 Output Total 0 ml Balance 0 ml Output Urine Total 0 ml # Voids 1 General: Alert, Oriented X3, Cooperative Abdomen: Normal bowel sounds, Soft, No tenderness Labs Laboratory Tests Test 04/22/20 00:16 04/22/20 01:30 04/22/20 15:10 04/23/20 04:45 Urine Collection Type Unknown Urine Color Yellow Urine Clarity Clear Urine pH 7.5 (<5.0-8.0) Urine Specific [place] 1.020 (1.000-1.030) Urine Protein Negative mg/dL (NEG-TRACE) Urine Glucose (UA) Negative mg/dL (NEG) Urine Ketones (Stick) 40 mg/dL (NEG) Urine Blood Negative (NEG) Urine Nitrite Negative (NEG) Urine Bilirubin Negative (NEG) Urine Urobilinogen Dipstick 0.2 mg/dL (0.2 mg/dL) Urine Leukocyte Esterase Moderate (NEG) Urine RBC 1-2 /HPF (0-2) Urine WBC 11-20 /HPF (0-4) Urine Squamous Epithelial Cells Few /LPF Urine Bacteria Few /HPF (0-FEW) Urine Mucus Marked /LPF White Blood Count 13.6 x10^3/uL (4.0-11.0) 7.8 x10^3/uL (4.0-11.0) Red Blood Count 4.65 x10^6/uL (3.50-5.40) 4.38 x10^6/uL (3.50-5.40) Hemoglobin 13.6 g/dL (12.0-15.5) 13.1 g/dL (12.0-15.5) Hematocrit 40.0 % (36.0-47.0) 38.4 % (36.0-47.0) Mean Corpuscular Volume 86 fL (79-100) 88 fL (79-100) Mean Corpuscular Hemoglobin 29 pg (25-35) 30 pg (25-35) Mean Corpuscular Hemoglobin Concent 34 g/dL (31-37) 34 g/dL (31-37) Red Cell Distribution Width 13.0 % (11.5-14.5) 13.1 % (11.5-14.5) Platelet Count 234 x10^3/uL (140-400) 201 x10^3/uL (140-400) Neutrophils (%) (Auto) 89 % (31-73) Lymphocytes (%) (Auto) 8 % (24-48) Monocytes (%) (Auto) 3 % (0-9) Eosinophils (%) (Auto) 0 % (0-3) Basophils (%) (Auto) 0 % (0-3) Neutrophils # (Auto) 12.1 x10^3/uL (1.8-7.7) Lymphocytes # (Auto) 1.1 x10^3/uL (1.0-4.8) Monocytes # (Auto) 0.4 x10^3/uL (0.0-1.1) Eosinophils # (Auto) 0.0 x10^3/uL (0.0-0.7) Basophils # (Auto) 0.0 x10^3/uL (0.0-0.2) Segmented Neutrophils % 86 % (35-66) Band Neutrophils % 2 % (0-9) Lymphocytes % 12 % (24-48) Platelet Estimate Adequate (ADEQUATE) Sodium Level 137 mmol/L (136-145) 143 mmol/L (136-145) Potassium Level 4.1 mmol/L (3.5-5.1) 4.3 mmol/L (3.5-5.1) Chloride Level 100 mmol/L (98-107) 109 mmol/L (98-107) Carbon Dioxide Level 28 mmol/L (21-32) 28 mmol/L (21-32) Anion Gap 9 (6-14) 6 (6-14) Blood Urea Nitrogen 15 mg/dL (7-20) 8 mg/dL (7-20) Creatinine 0.8 mg/dL (0.6-1.0) 0.8 mg/dL (0.6-1.0) Estimated GFR (Cockcroft-Gault) 72.0 72.0 BUN/Creatinine Ratio 19 (6-20) Glucose Level 130 mg/dL (70-99) 105 mg/dL (70-99) Calcium Level 9.3 mg/dL (8.5-10.1) 8.0 mg/dL (8.5-10.1) Magnesium Level 2.2 mg/dL (1.8-2.4) Total Bilirubin 0.4 mg/dL (0.2-1.0) Aspartate Amino Transf (AST/SGOT) 23 U/L (15-37) Alanine Aminotransferase (ALT/SGPT) 35 U/L (14-59) Alkaline Phosphatase 62 U/L (46-116) C-Reactive Protein, Quantitative 0.7 mg/L (0-3.3) Total Protein 7.9 g/dL (6.4-8.2) Albumin 4.1 g/dL (3.4-5.0) Albumin/Globulin Ratio 1.1 (1.0-1.7) Lipase 69 U/L (73-393) Lactic Acid Level 1.6 mmol/L (0.4-2.0) Laboratory Tests Test 04/22/20 15:10 04/23/20 04:45 Lactic Acid Level 1.6 mmol/L (0.4-2.0) White Blood Count 7.8 x10^3/uL (4.0-11.0) Red Blood Count 4.38 x10^6/uL (3.50-5.40) Hemoglobin 13.1 g/dL (12.0-15.5) Hematocrit 38.4 % (36.0-47.0) Mean Corpuscular Volume 88 fL (79-100) Mean Corpuscular Hemoglobin 30 pg (25-35) Mean Corpuscular Hemoglobin Concent 34 g/dL (31-37) Red Cell Distribution Width 13.1 % (11.5-14.5) Platelet Count 201 x10^3/uL (140-400) Sodium Level 143 mmol/L (136-145) Potassium Level 4.3 mmol/L (3.5-5.1) Chloride Level 109 mmol/L (98-107) Carbon Dioxide Level 28 mmol/L (21-32) Anion Gap 6 (6-14) Blood Urea Nitrogen 8 mg/dL (7-20) Creatinine 0.8 mg/dL (0.6-1.0) Estimated GFR (Cockcroft-Gault) 72.0 Glucose Level 105 mg/dL (70-99) Calcium Level 8.0 mg/dL (8.5-10.1) Problem List Problems Medical Problems: (1) Small bowel obstruction Status: Acute Assessment/Plan improved if ok with GI can start clears Justicifation of Admission Dx: Justifications for Admission: Justification of Admission Dx: Yes MARLINE MELENDEZ MD 04/23/20 1134: SURGICAL PROGRESS NOTE Assessment/Plan Patient seen and examined by me. Appearing to be more comfortable much improved no nausea vomiting. Agree with Walker assessment plan advance diet as per GI MARTINA VALENCIA APRN Apr 23, 2020 10:07 MARLINE MELENDEZ MD Apr 23, 2020 11:34
[2020-04-23 10:58] VITALS: BP 108/60
--- NOTE | 2020-04-23 11:42 | PDOC ---
PROGRESS NOTES Date of Service: DATE: 04/23/20 TIME: 11:40 Chief Complaint Chief Complaint acute Abd pain, vomiting - Abnormal CT - SBO w/ transition point at TI w/ wall thickening and stricture - small bowel obstruction History of Present Illness History of Present Illness pain much better today acute abd series better able to walk, wants to DC soon, will try clears, and advance for dinner GI to [facility] outpatient Vitals Vitals Vital Signs Date Time Temp Pulse Resp B/P (MAP) Pulse Ox O2 Delivery O2 Flow Rate FiO2 04/23/20 10:58 98.2 63 20 108/60 (76) 97 Room Air 98.2 Physical Exam General: Alert, Oriented X3, Cooperative Heart: Regular rate, Normal S1, Normal S2 Abdomen: Normal bowel sounds, Soft, No tenderness Extremities: No edema, Normal pulses Skin: No significant lesion Labs LABS Laboratory Tests Test 04/22/20 15:10 04/23/20 04:45 Lactic Acid Level 1.6 mmol/L (0.4-2.0) White Blood Count 7.8 x10^3/uL (4.0-11.0) Red Blood Count 4.38 x10^6/uL (3.50-5.40) Hemoglobin 13.1 g/dL (12.0-15.5) Hematocrit 38.4 % (36.0-47.0) Mean Corpuscular Volume 88 fL (79-100) Mean Corpuscular Hemoglobin 30 pg (25-35) Mean Corpuscular Hemoglobin Concent 34 g/dL (31-37) Red Cell Distribution Width 13.1 % (11.5-14.5) Platelet Count 201 x10^3/uL (140-400) Sodium Level 143 mmol/L (136-145) Potassium Level 4.3 mmol/L (3.5-5.1) Chloride Level 109 mmol/L (98-107) Carbon Dioxide Level 28 mmol/L (21-32) Anion Gap 6 (6-14) Blood Urea Nitrogen 8 mg/dL (7-20) Creatinine 0.8 mg/dL (0.6-1.0) Estimated GFR (Cockcroft-Gault) 72.0 Glucose Level 105 mg/dL (70-99) Calcium Level 8.0 mg/dL (8.5-10.1) Assessment and Plan Assessmemt and Plan Problems Medical Problems: (1) Small bowel obstruction Status: Acute Comment Review of Relevant I have reviewed the following items manjit (where applicable) has been applied. Labs Laboratory Tests Test 04/22/20 00:16 04/22/20 01:30 04/22/20 15:10 04/23/20 04:45 Urine Collection Type Unknown Urine Color Yellow Urine Clarity Clear Urine pH 7.5 (<5.0-8.0) Urine Specific [place] 1.020 (1.000-1.030) Urine Protein Negative mg/dL (NEG-TRACE) Urine Glucose (UA) Negative mg/dL (NEG) Urine Ketones (Stick) 40 mg/dL (NEG) Urine Blood Negative (NEG) Urine Nitrite Negative (NEG) Urine Bilirubin Negative (NEG) Urine Urobilinogen Dipstick 0.2 mg/dL (0.2 mg/dL) Urine Leukocyte Esterase Moderate (NEG) Urine RBC 1-2 /HPF (0-2) Urine WBC 11-20 /HPF (0-4) Urine Squamous Epithelial Cells Few /LPF Urine Bacteria Few /HPF (0-FEW) Urine Mucus Marked /LPF White Blood Count 13.6 x10^3/uL (4.0-11.0) 7.8 x10^3/uL (4.0-11.0) Red Blood Count 4.65 x10^6/uL (3.50-5.40) 4.38 x10^6/uL (3.50-5.40) Hemoglobin 13.6 g/dL (12.0-15.5) 13.1 g/dL (12.0-15.5) Hematocrit 40.0 % (36.0-47.0) 38.4 % (36.0-47.0) Mean Corpuscular Volume 86 fL (79-100) 88 fL (79-100) Mean Corpuscular Hemoglobin 29 pg (25-35) 30 pg (25-35) Mean Corpuscular Hemoglobin Concent 34 g/dL (31-37) 34 g/dL (31-37) Red Cell Distribution Width 13.0 % (11.5-14.5) 13.1 % (11.5-14.5) Platelet Count 234 x10^3/uL (140-400) 201 x10^3/uL (140-400) Neutrophils (%) (Auto) 89 % (31-73) Lymphocytes (%) (Auto) 8 % (24-48) Monocytes (%) (Auto) 3 % (0-9) Eosinophils (%) (Auto) 0 % (0-3) Basophils (%) (Auto) 0 % (0-3) Neutrophils # (Auto) 12.1 x10^3/uL (1.8-7.7) Lymphocytes # (Auto) 1.1 x10^3/uL (1.0-4.8) Monocytes # (Auto) 0.4 x10^3/uL (0.0-1.1) Eosinophils # (Auto) 0.0 x10^3/uL (0.0-0.7) Basophils # (Auto) 0.0 x10^3/uL (0.0-0.2) Segmented Neutrophils % 86 % (35-66) Band Neutrophils % 2 % (0-9) Lymphocytes % 12 % (24-48) Platelet Estimate Adequate (ADEQUATE) Sodium Level 137 mmol/L (136-145) 143 mmol/L (136-145) Potassium Level 4.1 mmol/L (3.5-5.1) 4.3 mmol/L (3.5-5.1) Chloride Level 100 mmol/L (98-107) 109 mmol/L (98-107) Carbon Dioxide Level 28 mmol/L (21-32) 28 mmol/L (21-32) Anion Gap 9 (6-14) 6 (6-14) Blood Urea Nitrogen 15 mg/dL (7-20) 8 mg/dL (7-20) Creatinine 0.8 mg/dL (0.6-1.0) 0.8 mg/dL (0.6-1.0) Estimated GFR (Cockcroft-Gault) 72.0 72.0 BUN/Creatinine Ratio 19 (6-20) Glucose Level 130 mg/dL (70-99) 105 mg/dL (70-99) Calcium Level 9.3 mg/dL (8.5-10.1) 8.0 mg/dL (8.5-10.1) Magnesium Level 2.2 mg/dL (1.8-2.4) Total Bilirubin 0.4 mg/dL (0.2-1.0) Aspartate Amino Transf (AST/SGOT) 23 U/L (15-37) Alanine Aminotransferase (ALT/SGPT) 35 U/L (14-59) Alkaline Phosphatase 62 U/L (46-116) C-Reactive Protein, Quantitative 0.7 mg/L (0-3.3) Total Protein 7.9 g/dL (6.4-8.2) Albumin 4.1 g/dL (3.4-5.0) Albumin/Globulin Ratio 1.1 (1.0-1.7) Lipase 69 U/L (73-393) Lactic Acid Level 1.6 mmol/L (0.4-2.0) Laboratory Tests Test 04/22/20 15:10 04/23/20 04:45 Lactic Acid Level 1.6 mmol/L (0.4-2.0) White Blood Count 7.8 x10^3/uL (4.0-11.0) Red Blood Count 4.38 x10^6/uL (3.50-5.40) Hemoglobin 13.1 g/dL (12.0-15.5) Hematocrit 38.4 % (36.0-47.0) Mean Corpuscular Volume 88 fL (79-100) Mean Corpuscular Hemoglobin 30 pg (25-35) Mean Corpuscular Hemoglobin Concent 34 g/dL (31-37) Red Cell Distribution Width 13.1 % (11.5-14.5) Platelet Count 201 x10^3/uL (140-400) Sodium Level 143 mmol/L (136-145) Potassium Level 4.3 mmol/L (3.5-5.1) Chloride Level 109 mmol/L (98-107) Carbon Dioxide Level 28 mmol/L (21-32) Anion Gap 6 (6-14) Blood Urea Nitrogen 8 mg/dL (7-20) Creatinine 0.8 mg/dL (0.6-1.0) Estimated GFR (Cockcroft-Gault) 72.0 Glucose Level 105 mg/dL (70-99) Calcium Level 8.0 mg/dL (8.5-10.1) Microbiology 04/22/20 Urine Culture - Final, Complete Medications Current Medications Ondansetron HCl (Zofran) 4 mg 1X ONCE IVP Last administered on 04/22/20at 01:59; Start 04/22/20 at 01:30; Stop 04/22/20 at 01:31; Status DC Famotidine (Pepcid Vial) 20 mg 1X ONCE IVP Last administered on 04/22/20at 01:59; Start 04/22/20 at 01:30; Stop 04/22/20 at 01:31; Status DC Sodium Chloride 1,000 ml @ 1,000 mls/hr 1X ONCE IV Last administered on 04/22/20at 01:59; Start 04/22/20 at 01:30; Stop 04/22/20 at 02:29; Status DC Ketorolac Tromethamine (Toradol 15mg Vial) 10 mg 1X ONCE IVP Last administered on 04/22/20at 02:00; Start 04/22/20 at 01:30; Stop 04/22/20 at 01:31; Status DC Iohexol (Omnipaque 300 Mg/ml) 75 ml 1X ONCE IV Last administered on 04/22/20at 02:26; Start 04/22/20 at 02:30; Stop 04/22/20 at 02:31; Status DC Info (CONTRAST GIVEN -- Rx MONITORING) 1 each PRN DAILY PRN MC SEE COMMENTS; Start 04/22/20 at 02:15; Stop 04/24/20 at 02:14 Ceftriaxone Sodium (Rocephin) 1 gm 1X ONCE IVP Last administered on 04/22/20at 04:07; Start 04/22/20 at 02:30; Stop 04/22/20 at 02:31; Status DC Fentanyl Citrate (Fentanyl 2ml Vial) 25 mcg 1X ONCE IV Last administered on 04/22/20at 04:52; Start 04/22/20 at 04:30; Stop 04/22/20 at 04:31; Status DC Ondansetron HCl (Zofran) 4 mg PRN Q8HRS PRN IV NAUSEA/VOMITING 1ST CHOICE Last administered on 04/22/20at 07:15; Start 04/22/20 at 04:30; Stop 04/22/20 at 13:03; Status DC Fentanyl Citrate (Fentanyl 2ml Vial) 25 mcg PRN Q2HRS PRN IV SEVERE PAIN 7-10 Last administered on 04/22/20at 21:29; Start 04/22/20 at 04:30 Sodium Chloride 1,000 ml @ 100 mls/hr Q10H IV Last administered on 04/22/20at 04:51; Start 04/22/20 at 04:30; Stop 04/23/20 at 04:29; Status DC Ceftriaxone Sodium (Rocephin) 1 gm Q24H IVP Last administered on 04/22/20at 21:28; Start 04/22/20 at 21:00 Saliva Substitute (Biotene Moisturizing Mouth) 2 spray PRN Q15MIN PRN PO DRY MOUTH; Start 04/22/20 at 10:00 Potassium Chloride/Dextrose/ Sod Cl 1,000 ml @ 100 mls/hr Q10H IV Last administered on 04/23/20at 06:35; Start 04/22/20 at 10:00 Ondansetron HCl (Zofran) 8 mg PRN Q8HRS PRN IV NAUSEA/VOMITING 1ST CHOICE Last administered on 04/22/20at 13:14; Start 04/22/20 at 13:00 Famotidine (Pepcid Vial) 20 mg QHS IVP Last administered on 04/22/20at 21:29; Start 04/22/20 at 21:00; Stop 04/23/20 at 09:49; Status DC Famotidine (Pepcid) 20 mg QHS PO ; Start 04/23/20 at 21:00 Active Scripts Active Reported Digestive Probiotic (Lactobacillus Acidophilus) 1 Each Capsule 1 Cap PO DAILY 30 Days Zyrtec (Cetirizine Hcl) 10 Mg Tablet 1 Tab PO DAILY Calcium 600 + Vit D 800 Tab (Calcium Carbonate/Vitamin D3) 1 Each Tablet 2 Tab PO DAILY 30 Days Vitals/I & O Vital Sign - Last 24 Hours 04/22/20 04/22/20 04/22/20 04/22/20 12:02 12:02 13:08 15:00 Temp 98.4 98.4 Pulse 68 Resp 18 B/P (MAP) 124/68 (86) Pulse Ox 98 98 98 97 O2 Delivery Room Air 04/22/20 04/22/20 04/22/20 04/22/20 15:21 15:24 18:17 18:24 Pulse Ox 98 98 98 98 04/22/20 04/22/20 04/22/20 04/22/20 19:00 19:00 22:00 23:12 Temp 98.4 97.9 98.4 97.9 Pulse 74 71 Resp 20 22 18 20 B/P (MAP) 94/60 (71) 91/49 (63) Pulse Ox 97 96 97 97 O2 Delivery Room Air Room Air 04/23/20 04/23/20 04/23/20 03:00 07:15 10:58 Temp 97.9 97.8 98.2 97.9 97.8 98.2 Pulse 68 81 63 Resp 20 18 20 B/P (MAP) 106/64 (78) 99/63 (75) 108/60 (76) Pulse Ox 95 98 97 O2 Delivery Room Air Room Air Room Air Intake and Output 04/22/20 04/22/20 04/23/20 15:00 23:00 07:00 Output Total 0 ml 0 ml Balance 0 ml 0 ml Justicifation of Admission Dx: Justifications for Admission: Justification of Admission Dx: Yes SIMBA SAAVEDRA MD Apr 23, 2020 11:42
--- NOTE | 2020-04-23 12:00 | NUR ---
Clear liquid diet for lunch. Tolerated it well. Also pt had BM. Orders to advance diet this evening. Cont. monitor.
[2020-04-23 15:19] VITALS: BP 122/63
--- NOTE | 2020-04-23 17:00 | NUR ---
Tolerated full liquid diet. Anxious to go home.
--- NOTE | 2020-04-23 18:10 | NUR ---
Discharge instructions given. No prescriptions given. Answered questions and concerns. Verbalized understanding. Pt discharged home accompanied by spouse.
[2020-04-23] MEDS ORDERED: FAMOTIDINE 20 MG TABLET. PO SCH (21:00)
== END 2020-04-23 18:10 | disposition home or self-care (01) | DRG 389 ==
LOC: ER 23:30 → ED HOLD 04-22 04:21 → 4 NORTH 04-22 05:23
PROVIDERS: ADMIT Internal Medicine; ATTEND Internal Medicine
DX: K56.609 Unspecified intestinal obstruction, unspecified as to partial versus complete obstruction (principal); N39.0 Urinary tract infection, site not specified; E11.9 Type 2 diabetes mellitus without complications; E78.00 Pure hypercholesterolemia, unspecified; I10 Essential (primary) hypertension; K80.20 Calculus of gallbladder without cholecystitis without obstruction; K59.00 Constipation, unspecified; R12 Heartburn; Z83.71 Family history of colonic polyps; Z88.0 Allergy status to penicillin
CPT/HCPCS: 36415; 74022; 74177; 80048; 80053; 81001; 83605; 83690; 83735; 85007; 85025; 85027; 86140; 87086; 96361; 96374; 96375; J0696; J1885; J2405; J3010; J3480; J3490; J7030; Q9967; 99285-25; G0378

== ENCOUNTER → 2020-06-14 | Outpatient (CLI) | payer MEDICARE ==
[~2020-06-14] MED LIST: CALC-495 PO; CETI10TA74 PO; CONTRAST GIVEN. MC PRN; IOHEXOL 300 MG/ML 100ML VIAL. IV ONE; LACT1CAP53 PO
--- NOTE | 2020-06-14 17:56 | RAD ---
Exam: CT abdomen/pelvis with intravenous contrast Indication: Ileal stricture Comparison: CT abdomen and pelvis 04/22/2020 Technique: Helical CT imaging performed of the abdomen and pelvis after the intravenous administration of 75 mL Omnipaque 300 intravenous contrast and 1350 mL Volumen according to enterography protocol. Sagittal and coronal reformats were obtained. One or more of the following individualized dose reduction techniques were utilized for this examination: 1. Automated exposure control 2. Adjustment of the mA and/or kV according to patient size 3. Use of iterative reconstruction technique. Findings: Lower chest: Normal. Liver: Liver is normal in size. No focal lesion. Gallbladder/Biliary Tree: Normal. Pancreas: Normal. Spleen: Normal. Adrenal Glands: Normal. Kidneys/Ureters/Bladder: Kidneys are normal in size and enhancement. No hydronephrosis. Punctate Ureters and bladder are normal. Reproductive Organs: Uterus and ovaries are unremarkable. Stomach, small bowel, and colon: The stomach is distended with fluid. Small bowel dilation has resolved. Abnormal wall thickening and narrowing of the terminal ileum on prior exam has resolved. There is no evidence of stricture or inflammation. Appendix is normal. Colon is normal. Vasculature: Normal. Lymph Nodes: No lymphadenopathy. Peritoneum and retroperitoneum: No free fluid or free air. Bones: There is moderate to severe disc space narrowing with endplate proliferation at L5-S1. Impression: Interval resolution of small bowel obstruction and abnormal wall thickening and narrowing of the terminal ileum. No evidence of stricture or inflammatory bowel disease on this exam. Electronically signed by: Evon Steen MD (06/14/2020 5:53 PM) [id number]
== END | disposition home or self-care (01) ==
LOC: CT 12:23
PROVIDERS: ATTEND Physician Assistant
DX: K56.699 Other intestinal obstruction unspecified as to partial versus complete obstruction (principal)
CPT/HCPCS: 74170; Q9967

== ENCOUNTER → 2020-07-15 | Outpatient (CLI) | payer MEDICARE ==
[~2020-07-15] MED LIST changes: -CONTRAST GIVEN. MC PRN; -IOHEXOL 300 MG/ML 100ML VIAL. IV ONE
--- NOTE | 2020-07-15 11:59 | RAD ---
EXAM: Pelvic sonogram. HISTORY: Pelvic pain. TECHNIQUE: Transabdominal sonographic imaging of the pelvis was performed. COMPARISON: None. FINDINGS: The uterus measures 6.0 x 4.2 x 2.2 cm. The endometrial stripe measures 3.7 mm in thickness. The ovaries are normal in size and demonstrate normal blood flow. There is no pelvic free fluid. IMPRESSION: Unremarkable postmenopausal pelvic sonogram. Electronically signed by: Chetna Reed MD (07/15/2020 11:56 AM) [id number]
== END ==
LOC: US 10:42
PROVIDERS: ATTEND Nurse Practitioner Family
DX: R10.2 Pelvic and perineal pain (principal); R93.89 Abnormal findings on diagnostic imaging of other specified body structures
CPT/HCPCS: 76856